=== PATIENT | female | born 1950 | race Caucasian/White ===

== ENCOUNTER 2025-02-01 15:57 | Emergency (ER) | payer MEDICARE, MEDICAID, SELFPAY ==
[2025-02-01 16:11] VITALS: BP 114/67; PULSE 52; RESP 16; TEMP 36.9; O2SAT 97; BMI 34.0
--- NOTE | 2025-02-01 17:34 | DI.CT.S_ITS ---
PROCEDURE: CT CERVICAL SPINE WO CON INDICATIONS: L sided pain and radiculopathy; no trauma TECHNIQUE: Noncontrast 3 mm thick sections acquired from the skull base to the T4 level. Sagittal and coronal reformats were then constructed. For radiation dose reduction, the following was used: automated exposure control, adjustment of mA and/or kV according to patient size. COMPARISON: None. FINDINGS: Image quality: Excellent. Bones: No fractures or dislocations. Mild, grade 1, degenerative anterolisthesis of C4 on C5. Multilevel degenerative disc disease results in moderate spinal canal stenosis at C3-4, C5-6, and C6-7. Multilevel uncovertebral and facet arthrosis results in multilevel severe neural foraminal stenosis. Visualized superior ribs are intact. Soft tissues: Prevertebral soft tissues are normal in thickness. No paravertebral hematomas. No apical pneumothoraces. Calcified subcentimeter nodule in the right thyroid lobe. No nodule which requires further follow-up per consensus guidelines. IMPRESSION: No displaced fracture or traumatic subluxation. Multilevel moderate spinal canal stenosis and multilevel severe neural foraminal stenosis. Recommend further evaluation with outpatient cervical spine MRI without contrast. Dictated by: Johnny Phelps M.D. on 02/01/2025 at 18:18 Approved by: Johnny Phelps M.D. on 02/01/2025 at 18:21
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
[2025-02-01] MEDS: LIDOCAINE 5% PATCH 1 EACH TOP (17:54)
[2025-02-01 18:59] VITALS: BP 114/65; PULSE 53; RESP 17; O2SAT 97
== END 2025-02-01 19:05 | disposition home or self-care (01) ==
PROVIDERS: Emergency Provider Physician Assistant
DX: M54.12 Radiculopathy, cervical region (principal); M50.31 Other cervical disc degeneration, high cervical region; M48.02 Spinal stenosis, cervical region
CPT/HCPCS: 72125; 99283; 99284

== ENCOUNTER 2025-02-22 16:38 | Emergency (ER) | payer MEDICARE, MEDICAID, SELFPAY ==
[2025-02-22] VITALS (15 sets, daily range): BP systolic 168–207; BP diastolic 89–108; PULSE 59–78; RESP 15–33; TEMP 36.2; O2SAT 95–100; BMI 34.2
--- NOTE | 2025-02-22 16:53 | EKG_ITS ---
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
--- NOTE | 2025-02-22 16:53 | DI.RAD.S_ITS ---
PROCEDURE: XR CHEST 1V INDICATIONS: Chest Pain TECHNIQUE: One view of the chest was acquired. COMPARISON: None. FINDINGS: Surgical changes and devices: None. Lungs and pleura: Lungs are clear. No pleural effusions or pneumothorax. Mediastinum: Mediastinal contours appear normal. Heart size is normal. Bones and chest wall: No suspicious bony lesions. Overlying soft tissues appear unremarkable. IMPRESSION: No acute pulmonary process. Dictated by: Janeth Cervantes M.D. on 02/22/2025 at 17:17 Approved by: Janeth Cervantes M.D. on 02/22/2025 at 17:17
[2025-02-22 17:12] LABS: Add Manual Diff / Slide Review NO; Hematocrit 45.0 % (36-46); Hemoglobin 15.5 g/dL (12.0-16.0); Lymphocytes Absolute Auto 1400 /uL (1100-4500); Mean Corpuscular HGB Conc 34.3 % (30-36); Mean Corpuscular Hemoglobin 30.4 PG (26-34); Mean Corpuscular Volume 88.6 fL (80-100); Platelet Count 198 X10^3/uL (150-400)
[2025-02-22 17:14] LABS: INR 0.9 (0.9-1.3); Prothrombin Time 10.6 SECONDS (9.4-12.5)
[2025-02-22 17:16] LABS: PTT Partial Thromboplastin Tim 28 SECONDS (25.1-36.5)
[2025-02-22 17:28] LABS: Alanine Aminotransferase 15 IU/L (<35); Albumin 4.2 g/dL (3.5-5.0); Albumin Globulin Ratio 1.4 (1.0-2.8); Alkaline Phosphatase 95 U/L (38-126); Blood Urea Nitrogen 22 mg/dL (7-17); Calcium 9.1 mg/dL (8.4-10.2); Carbon Dioxide 30 mmol/L (22-32); Chloride 105 mmol/L (98-107); Creatine Kinase 63 U/L (30-135); Estimated Glomerular Filt Rate > 60 mL/min (>60); Globulin 2.9 g/dL (1.7-4.1); Glucose 138 mg/dL (70-99); HEMOLYSIS < 15 (0-50); Lipase 36 U/L (23-300); Magnesium 1.9 mg/dL (1.6-2.3); Potassium 3.7 mmol/L (3.4-5.1); Sodium 141 mmol/L (137-145); Total Protein 7.1 g/dL (6.3-8.2)
[2025-02-22 17:38] LABS: NT-proBNP (BNP-Adult 18+) 449 pg/mL (<125); Troponin I 0.015 ng/mL (0.01-0.034)
[2025-02-22 20:32] LABS: Troponin I 0.014 ng/mL (0.01-0.034)
--- NOTE | 2025-02-22 21:27 | ED.CHESTPAIN ---
HPI - Chest Pain General Chief Complaint: Chest Pain Stated Complaint: LT CHEST PAIN Time Seen by Provider: 02/22/25 21:27 Source: patient, RN notes reviewed and old records reviewed Limitations: no limitations History of Present Illness HPI narrative: 74-year-old female history of hypertension, dyslipidemia, CHF, chronic cervical pain with known cervical stenosis presents with complaint of left-sided neck pain that radiates down towards her left chest wall and arm. Patient states she has had symptoms January. She has had a CT of her neck and an MRI which did show some canal stenosis and she has been referred to follow up with spinal surgery has not appointment no March 15. 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 It is worse with any sort of movement. She states feels very similar to the pain she has been having she does note some paresthesias in fingers 3-5 on the left, patient states this has been present for several weeks. She denies any shortness of breath. No nausea or vomiting, no other GI or urinary symptoms. No diaphoresis. She has been taking ibuprofen [id number] twice daily and Lyrica. She states she is very anxious to take any narcotics. Patient states she has allergies to Demerol and sulfa. She takes losartan, atorvastatin, Farxiga, pregabalin as her daily medications. No tobacco, alcohol or recreational drugs. Related Data Previous Rx's ?Medication ?Instructions ?Recorded hydrocodone 5 mg-acetaminophen 325 1 tab PO Q4-6H PRN pain #12 tabs 02/01/25 mg tablet hydrocodone 5 mg-acetaminophen 325 1 tab PO Q4-6H PRN pain #14 tabs 02/02/25 mg tablet prednisone 20 mg tablet 40 mg (2 x 20 mg) PO DAILY 5 days 02/22/25 #10 tabs Allergies Allergy/AdvReac Type Severity Reaction Status Date / Time meperidine (From Demerol) Allergy Verified 02/01/25 16:16 Sulfa (Sulfonamide Allergy Verified 02/01/25 16:16 Antibiotics) Review of Systems Review of Systems ROS Unobtainable: All systems reviewed & are unremarkable except as noted in HPI and below Exam Narrative Exam Narrative: GENERAL: Alert and oriented x three, elderly female in mild distress, HEENT: Head normocephalic, atraumatic, EOMI, pupils reactive, face symmetric, moist mucous membranes NECK: Supple, full range of motion, patient has some mild cervical tenderness. She has increased pain with movement at her arm. CARDIOVASCULAR: Regular rate and rhythm without murmurs, rubs or gallops. No reproducible chest pain on exam. No rash or skin change. RESPIRATORY: Breath sounds equal bilaterally, no wheezes rales or rhonchi. ABDOMEN: Soft, nontender. Normoactive bowel sounds all 4 quadrants. No guarding or rebound, rigidity, no mass : No CVA tenderness EXTREMITIES: Normal range of motion, no clubbing or edema. Neurovascularly intact. 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 Patient notes some decreased sensation in fingers 345 but does have sensation to light touch on the left side. NEUROLOGICAL: Cranial nerves II through XII grossly intact. Moving all extremities SKIN: Warm, dry, no petechiae, no rashes or lesions. Initial Vital Signs Initial Vital Signs: Vital Signs Temperature 97.2 F L 02/22/25 16:51 Pulse Rate 78 02/22/25 16:51 Respiratory Rate 16 02/22/25 16:51 Blood Pressure 172/89 H 02/22/25 16:51 Pulse Oximetry 97 02/22/25 16:51 Oxygen Delivery Method Room Air 02/22/25 16:51 Course Orders Ordered: Discontinued Medications Ketorolac Tromethamine (Ketorolac 30 Mg/Ml Vial) 15 mg IV NOW ONE Stop: 02/22/25 22:10 Last Admin: 02/22/25 22:20 Dose: 15 mg Documented By: MICHELLE Morphine Sulfate (Morphine 4 Mg/Ml Inj) 4 mg IV NOW ONE Stop: 02/22/25 21:21 Ondansetron HCl (Ondansetron 4 Mg/2 Ml Inj) 4 mg IV NOW ONE Stop: 02/22/25 21:21 Last Admin: 02/22/25 22:23 Dose: Not Given Documented By: MICHELLE Vital Signs Vital signs: Vital Signs - 8 hr 02/22/25 22:00 02/22/25 22:01 02/22/25 22:30 Pulse Rate 60 61 63 Respiratory Rate Blood Pressure Pulse Oximetry 96 96 97 02/22/25 22:31 02/22/25 22:31 Pulse Rate 60 Respiratory Rate 18 Blood Pressure 188/91 H Pulse Oximetry 97 MDM - Chest Pain Lab Data 02/22/25 16:54 02/22/25 16:54 Labs: Lab Results 02/22/25 02/22/25 Range/Units 16:54 19:59 WBC 9.4 (4.5-11.0) X10^3/uL RBC 5.08 (4.0-5.2) X10^6/uL Hgb 15.5 (12.0-16.0) g/dL Hct 45.0 (36-46) % MCV 88.6 (80-100) fL MCH 30.4 (26-34) PG MCHC 34.3 (30-36) % RDW 13.7 (11.6-14.8) % Plt Count 198 (150-400) X10^3/uL Neut % (Auto) 76.3 H (50-75) % Lymph % (Auto) 14.7 L (25-40) % Carson % (Auto) 6.2 (3-14) % Eos % (Auto) 1.5 L (2-4) % Baso % (Auto) 1.3 (0-2) % Neut # (Auto) 7200 H (5183-5361) /uL Lymph # (Auto) 1400 (0574-5757) /uL Carson # (Auto) 600 (0-900) /uL Eos # (Auto) 100 (0-450) /uL Baso # (Auto) 100 (0-100) /uL PT 10.6 (9.4-12.5) SECONDS INR 0.9 (0.9-1.3) APTT 28 (25.1-36.5) SECONDS Sodium 141 (137-145) mmol/L Potassium 3.7 (3.4-5.1) mmol/L Chloride 105 (98-107) mmol/L Carbon Dioxide 30 (22-32) mmol/L BUN 22 H (7-17) mg/dL Creatinine 0.95 (0.52-1.04) mg/dL Estimated GFR > 60 (>60) mL/min BUN/Creatinine Ratio 23.2 H (6-22) Glucose 138 H (70-99) mg/dL Calcium 9.1 (8.4-10.2) mg/dL Magnesium 1.9 (1.6-2.3) mg/dL Total Bilirubin 0.7 (0.2-1.3) mg/dL AST 22 (14-36) IU/L ALT 15 (<35) IU/L Alkaline Phosphatase 95 (38-126) U/L Total Creatine Kinase 63 (30-135) U/L Troponin I 0.015 0.014 (0.01-0.034) ng/mL NT-Pro-B Natriuret Pep 449 H (<125) pg/mL Total Protein 7.1 (6.3-8.2) g/dL Albumin 4.2 (3.5-5.0) g/dL Globulin 2.9 (1.7-4.1) g/dL Albumin/Globulin Ratio 1.4 (1.0-2.8) Lipase 36 (23-300) U/L ECG Data Attestation: I personally reviewed and interpreted this ECG as follows: Interpretation: Sinus rhythm sinus arrhythmia first-degree AV block rate of 71 [place] 220 QRS of 144 QTC of 432, no acute ST-elevation patient does have a right bundle-branch block. MDM Narrative Medical decision making narrative: Patient has a white count 9.4 hemoglobin of 15 platelets of 198, coags are negative, BUN 22 electrolytes are otherwise appropriate glucose is 138 LFTs are normal, troponin 0.015 with a repeat of 0.014, BNP is 499. Lipase is 36. Chest x-ray shows no acute pulmonary process. EKG shows sinus arrhythmia first-degree AV block with right bundle-branch block no priors for comparison 74-year-old female with known cervical stenosis with increased pain after reaching forward and bending over she notes increase of symptoms particularly with bending. She has had MRI and an outpatient facility she has been referred to spinal surgery notes she has not impingement of the nerves and describes some cervical canal stenosis. She has not had any red flag symptoms she has some paresthesias but these are not new she has not no new weakness no loss of bowel or bladder control, she does have increased pain she has been taking ibuprofen and Lyrica [id number]. She is very reluctant to take any narcotics but states she had some prednisone which was helpful. Discharge Plan Departure Patient Disposition: Home Clinical Impression: Atypical chest pain Instructions: DI for Atypical Chest Pain Activity Restrictions/Additional Instructions: I hope you continue to feel better. Continue your home medications as prescribed. You did receive a dose of Toradol so delayed your next dose of ibuprofen until tomorrow. Take prednisone until completed. Prescription sent to [facility] in [place]. Please return if you have sudden loss of sensation, inability to lift or move your arm or hand, rapidly worsening pain, any fevers any new shortness of breath or increase her changes to your chest pain or other new or concerning changes. Prescriptions: New prednisone 20 mg tablet 40 mg PO DAILY 5 Days Qty: 10 0RF No Action hydrocodone-acetaminophen 5-325 mg tablet 1 tab PO Q4-6H PRN (Reason: pain) Qty: 12 0RF hydrocodone-acetaminophen 5-325 mg tablet 1 tab PO Q4-6H PRN (Reason: pain) Qty: 14 0RF Stand Alone Forms: Patient Portal/API
--- NOTE | 2025-02-22 21:31 | PC.NURSE ---
Pt requesting nitro SL for htn. States she takes at home for elevated BP. Still reporting L breast pain 02/16. Dr Altamirano notified, orders received for morphine for pain mgt to see if BP improves. Med and rationale explained to pt; she declined stating conern for drug interactions. Agreeable to wait to see Dr Altamirano before diploma medical assistant.
[2025-02-22] MEDS: KETOROLAC 30 MG/ML VIAL 15 MG IV (22:20)
== END 2025-02-22 23:00 | disposition home or self-care (01) ==
PROVIDERS: Family Medicine; Emergency Provider Emergency Medicine
DX: R07.89 Other chest pain (principal); M54.2 Cervicalgia
CPT/HCPCS: 71045; 80053; 82550; 83690; 83735; 83880; 84484; 85025; 85610; 85730; 93005; 93010; 96374; 99284; J1885